=== PATIENT | female | born 1955 | race Caucasian/White ===

== ENCOUNTER 2020-03-04 13:56 | Outpatient (REF) | payer MEDICARE, OTHER, SELFPAY ==
--- NOTE | 2020-03-04 | MM_ITS ---
EXAMINATION: MM SCREENING DIGITAL BREAST TOMOSYNTHESIS, BILATERAL CLINICAL INFORMATION: Screening. Asymptomatic. The lifetime risk of breast cancer based on the Tyrer-Cuzick Model is 8%. COMPARISON: Mammography: 05/28/2018, 10/05/2011 TECHNIQUE: Digital breast tomosynthesis is performed in both the craniocaudal and mediolateral oblique views along with computer-aided detection (CAD). Synthesized 2D images are generated from the tomosynthesis. FINDINGS: There are scattered areas of fibroglandular density (ACR BI-RADS breast composition Category b). There are no significant masses, abnormal calcifications, or other abnormalities. The axilla and skin contours are unremarkable. MM/MM tomosynthesis screening BI IMPRESSION: No mammographic evidence of malignancy. ASSESSMENT: BI-RADS 1: Negative RECOMMENDATION: Routine annual mammography screening. This patient's information was entered into a reminder system with a target due date for their next mammogram.
== END 2020-03-04 13:57 | disposition home or self-care (01) ==
LOC: HO.MAMMO 13:56
PROVIDERS: Visit Provider Physician Assistant
DX: Z12.31 Encounter for screening mammogram for malignant neoplasm of breast (principal)
CPT/HCPCS: 77063; 77067

== ENCOUNTER 2020-03-14 07:14 | Outpatient (REF) | payer MEDICARE, OTHER, SELFPAY ==
[2020-03-14 08:17] LABS: Estimated Average Glucose 105 mg/dL; Hemoglobin A1c % 5.3 %
[2020-03-14 08:24] LABS: Alanine Aminotransferase 22 U/L (0-31); Albumin Level 4.1 g/dL (3.5-5.0); Alkaline Phosphatase 48 U/L (39-117); Anion Gap 13 (12-20); Aspartate Amino Transferase 21 U/L (5-31); Bilirubin Total 0.3 mg/dL (0.0-1.0); Blood Urea Nitrogen 28 mg/dL (9-16); Calcium 8.4 mg/dL (8.4-10.2); Carbon Dioxide 28 mmol/L (22-29); Chloride 104 mmol/L (96-108); Cholesterol 204 mg/dL; Estimated Glomerular Filt Rate > 60; Glucose Fasting 97 mg/dL (60-99); HDL Cholesterol 52 mg/dL; LDL Cholesterol Calculated 140 mg/dl; Potassium 4.5 mmol/l (3.3-5.1); Sodium 140 mmol/L (135-145); Total Protein 6.3 g/dL (6.5-8.0); Triglycerides 63 mg/dL
[2020-03-14 08:47] LABS: Thyroid Stimulating Hormone 4.62 mIU/mL (0.32-4.0)
== END 2020-03-14 07:15 | disposition home or self-care (01) ==
LOC: HO.LAB 07:14
PROVIDERS: PCP Physician Assistant; Visit Provider Physician Assistant
DX: Z13.1 Encounter for screening for diabetes mellitus (principal); Z13.220 Encounter for screening for lipoid disorders; Z13.29 Encounter for screening for other suspected endocrine disorder
CPT/HCPCS: 80053; 80061; 83036; 84443

== ENCOUNTER 2020-09-15 09:31 | Outpatient (REF) | payer MEDICARE, OTHER, SELFPAY ==
[2020-09-15 10:24] LABS: MANUAL DIFF FLAG NO
[2020-09-15 10:29] LABS: Basophils Percent Auto 0.8 % (0-2); Eosinophils Absolute Auto 0.2 X10*3/uL (0.0-0.4); Eosinophils Percent Auto 3.1 % (0-4); Hematocrit 40.7 % (37-47); Hemoglobin 13.3 g/dl (12.0-16.0); Imm Gran Abs Auto 0.01 X10*3/uL (0.00-0.03); Imm Gran Pct Auto 0.2 % (0.0-0.4); Lymphocytes Absolute Auto 1.6 X10*3/uL (1.2-4.9); Lymphocytes Percent Auto 31.5 % (20-40); Mean Corpuscular HGB Conc 32.7 g/dl (31.0-35.0); Mean Corpuscular Hemoglobin 30.3 pg (27.0-33.0); Mean Corpuscular Volume 92.7 fL (80-98); Monocytes Absolute Auto 0.6 X10*3/uL (0.1-1.2); Monocytes Percent Auto 11.1 % (2-11); Neutrophils Absolute Auto 2.7 X10*3/uL (2.0-8.3); Neutrophils Percent Auto 53.3 % (45-73); Platelet Count 263 X10*3/uL (160-400); Red Blood Count 4.39 X10*6/uL (4.20-5.50); Red Cell Distribution Width 12.6 % (11.0-16.0); White Blood Count 5.1 X10*3/uL (4.8-10.8)
[2020-09-15 10:54] LABS: Alanine Aminotransferase 18 U/L (0-31); Albumin Level 4.1 g/dL (3.5-5.0); Alkaline Phosphatase 51 U/L (39-117); Anion Gap 12 (12-20); Aspartate Amino Transferase 22 U/L (5-31); Bilirubin Total 0.8 mg/dL (0.0-1.0); Blood Urea Nitrogen 17 mg/dL (9-16); Calcium 9.3 mg/dL (8.4-10.2); Carbon Dioxide 28 mmol/L (22-29); Chloride 105 mmol/L (96-108); Cholesterol 191 mg/dL; Estimated Glomerular Filt Rate > 60; Glucose Fasting 97 mg/dL (60-99); HDL Cholesterol 43 mg/dL; LDL Cholesterol Calculated 131 mg/dl; Potassium 4.3 mmol/L (3.3-5.1); Sodium 141 mmol/L (135-145); Total Protein 6.3 g/dL (6.5-8.0); Triglycerides 89 mg/dL
[2020-09-15 11:15] LABS: TSH reflex Free T4 1.65 uIU/mL (0.32-4.0)
[2020-09-15 11:50] LABS: Creatinine Urine 117.12 mg/dL; Microalbum/Creatinine Ratio Ur 4.2 ug/mg cr
== END 2020-09-15 09:32 | disposition home or self-care (01) ==
LOC: HO.LAB 09:31
PROVIDERS: PCP Physician Assistant; Visit Provider Physician Assistant
DX: I10 Essential (primary) hypertension (principal); Z80.8 Family history of malignant neoplasm of other organs or systems
CPT/HCPCS: 36415; 80053; 80061; 82043; 84443; 85025

== ENCOUNTER 2020-12-25 15:12 | Outpatient (REF) | payer MEDICARE, OTHER, SELFPAY ==
[2020-12-25 16:42] LABS: Hematocrit 41.3 % (37-47); Hemoglobin 13.8 g/dl (12.0-16.0); Mean Corpuscular HGB Conc 33.4 g/dl (31.0-35.0); Mean Corpuscular Hemoglobin 30.7 pg (27.0-33.0); Mean Platelet Volume 10.4 fL (9.4-12.3); Platelet Count 280 X10*3/uL (160-400); Red Blood Count 4.49 X10*6/uL (4.20-5.50); Red Cell Distribution Width 12.7 % (11.0-16.0); White Blood Count 5.3 X10*3/uL (4.8-10.8)
[2020-12-25 17:10] LABS: Anion Gap 10 (12-20); Blood Urea Nitrogen 10 mg/dL (9-16); Calcium 9.6 mg/dL (8.4-10.2); Carbon Dioxide 31 mmol/L (22-29); Chloride 103 mmol/L (96-108); Estimated Glomerular Filt Rate > 60; Glucose Random 99 mg/dL (60-115); Potassium 4.4 mmol/L (3.3-5.1); Sodium 140 mmol/L (135-145)
[2020-12-25 17:37] LABS: TSH reflex Free T4 3.68 uIU/mL (0.32-4.0)
== END 2020-12-25 15:13 | disposition home or self-care (01) ==
LOC: HO.LAB 15:12
PROVIDERS: PCP Physician Assistant; Visit Provider Physician Assistant
DX: I10 Essential (primary) hypertension (principal)
CPT/HCPCS: 36415; 80048; 84443; 85027

== ENCOUNTER 2021-05-12 12:21 | Outpatient (REF) | payer MEDICARE, SELFPAY ==
--- NOTE | ~2021-05-12 | MM_ITS ---
EXAMINATION: MM SCREENING DIGITAL BREAST TOMOSYNTHESIS, BILATERAL CLINICAL INFORMATION: Screening. Asymptomatic. The lifetime risk of breast cancer based on the Tyrer-Cuzick Model is 7%. COMPARISON: Mammography: 03/04/2020, 05/12/2018, 10/05/2011 TECHNIQUE: Digital breast tomosynthesis is performed in both the craniocaudal and mediolateral oblique views along with computer-aided detection (CAD). Synthesized 2D images are generated from the tomosynthesis. FINDINGS: There are scattered areas of fibroglandular density (ACR BI-RADS breast composition Category b). There are no significant masses, abnormal calcifications, or other abnormalities. Parenchymal pattern is similar to prior studies. There is no developing density or architectural abnormality. The axilla and skin contours are unremarkable. No significant changes. MM/MM tomosynthesis screening BI IMPRESSION: No mammographic evidence of malignancy. ASSESSMENT: BI-RADS 1: Negative RECOMMENDATION: Routine annual mammography screening. This patient's information was entered into a reminder system with a target due date for their next mammogram.
--- NOTE | ~2021-05-12 | MM_ITS ---
EXAMINATION: BONE DENSITOMETRY CLINICAL INDICATION: Asymptomatic menopausal state. COMPARISON: None (current study represents initial baseline exam). TECHNIQUE: Using a [employer] DXA System (software version: 13.1) manufactured by [employer], dual-energy x-ray absorptiometry was performed of the lumbar spine and left hip. The images are of good technical quality. Summary results are attached. FINDINGS: AP SPINE L1-L3 (excluding L4): The data of L1-L4 has been changed to exclude the L4 vertebral body, because degenerative changes at this level may cause overestimation of lumbar spine density. BMD 1.117 g/cm2, Z-score 0.5, T-score -0.4, normal. LEFT FEMUR, NECK: BMD 0.779 g/cm2, Z-score -0.7, T-score -1.9, osteopenia. LEFT FEMUR, TOTAL: BMD 0.911 g/cm2, Z-score 0.1, T-score -0.8, normal. IDENTIFIED RISK FACTORS: Height loss, low calcium intake. Early menopause, secondary osteoporosis. HISTORY OF FRACTURE: None listed. MEDICATIONS: Vitamin D. MM/XR DEXA axial skeleton IMPRESSION: 1. DIAGNOSIS: Osteopenia based on the lowest T-score value of -1.9 in the femoral neck applying World Health Organization criteria. 2. 10-YEAR FRACTURE RISK PREDICTION, FRAX: Major osteoporotic fracture (clinical spine, forearm, hip or shoulder) 10.4%. Hip fracture 1.6%. 3. Treatment Recommendations: NOF guidelines recommend consideration for treatment in postmenopausal women and men age 50 and older presenting with the following: -A hip or vertebral (clinical or morphometric) fracture. -T-score less than or equal to -2.5 at the femoral neck or spine after appropriate evaluation to exclude secondary causes. -Low bone mass at the hip or spine and a 10-year fracture probability by FRAX of greater than or equal to 3% for hip fracture or greater than or equal to 20% for major osteoporotic fracture based on the [place] adapted WHO algorithm. 4. Other Recommendations: All treatment decisions require clinical judgment and consideration of individual patient factors, including patient preferences, comorbidities, previous drug use, risk factors not captured in the FRAX model (e.g. frailty, falls, vitamin D deficiency, increased bone turnover, interval significant decline in bone density) and possible under or overestimation of fracture risk by FRAX. Additional medical evaluation for secondary cause of low bone mineral density may be appropriate. FUTURE SCAN RECOMMENDATION: People with diagnosed cases of osteoporosis or at high risk for fracture should have regular bone mineral density tests. For patients eligible for Medicare, routine testing is allowed once every 2 years. The testing frequency can be increased to one year for patients who have rapidly progressing disease, those who are receiving or discontinuing medical therapy to restore bone mass, or have additional risk factors.
== END 2021-05-12 12:22 | disposition home or self-care (01) ==
LOC: HO.MAMMO 12:21
PROVIDERS: PCP Physician Assistant; Visit Provider Nurse Practitioner Family
DX: Z12.31 Encounter for screening mammogram for malignant neoplasm of breast (principal); Z13.820 Encounter for screening for osteoporosis; Z78.0 Asymptomatic menopausal state; M85.80 Other specified disorders of bone density and structure, unspecified site; Z79.899 Other long term (current) drug therapy
CPT/HCPCS: 77063; 77067; 77080

== ENCOUNTER 2021-11-03 06:59 | Outpatient (REF) | payer MEDICARE, SELFPAY ==
[2021-11-03 08:35] LABS: Alanine Aminotransferase 17 U/L (0-31); Alkaline Phosphatase 52 U/L (39-117); Anion Gap 12 (12-20); Aspartate Amino Transferase 24 U/L (5-31); Bilirubin Total 0.5 mg/dL (0.0-1.0); Blood Urea Nitrogen 16 mg/dL (9-16); Calcium 8.8 mg/dL (8.4-10.2); Carbon Dioxide 28 mmol/L (22-29); Chloride 103 mmol/L (96-108); Estimated Glomerular Filt Rate > 60; Glucose Fasting 102 mg/dL (60-99); Potassium 4.3 mmol/L (3.3-5.1); Sodium 139 mmol/L (135-145); Total Protein 6.4 g/dL (6.5-8.0)
== END 2021-11-03 07:00 | disposition home or self-care (01) ==
LOC: HO.LAB 06:59
PROVIDERS: PCP Physician Assistant; Visit Provider Nurse Practitioner Family
DX: Z13.1 Encounter for screening for diabetes mellitus (principal)
CPT/HCPCS: 36415; 80053

== ENCOUNTER 2021-11-04 07:48 | Outpatient (REF) | payer MEDICARE, SELFPAY ==
[2021-11-04 08:56] LABS: Estimated Average Glucose 111 mg/dL; Hemoglobin A1c % 5.5 %
== END 2021-11-04 07:49 | disposition home or self-care (01) ==
LOC: HO.LAB 07:48
PROVIDERS: Absent Provider Physician Assistant; PCP Physician Assistant; Visit Provider Nurse Practitioner Family
DX: R73.01 Impaired fasting glucose (principal)
CPT/HCPCS: 36415; 83036

== ENCOUNTER 2021-11-18 08:34 | Outpatient (REF) | payer MEDICARE, SELFPAY ==
[2021-11-18 09:40] LABS: Hematocrit 40.2 % (37.0-47.0); Hemoglobin 13.5 g/dl (12.0-16.0); Mean Corpuscular HGB Conc 33.6 g/dl (31.0-35.0); Mean Corpuscular Hemoglobin 30.4 pg (27.0-33.0); Mean Corpuscular Volume 90.5 fL (80.0-98.0); Mean Platelet Volume 10.3 fL (9.4-12.3); Platelet Count 288 X10*3/uL (160-400); Red Blood Count 4.44 X10*6/uL (4.20-5.50); Red Cell Distribution Width 12.7 % (11.0-16.0); White Blood Count 6.1 X10*3/uL (4.8-10.8)
[2021-11-18 10:07] LABS: Calcium 9.4 mg/dL (8.4-10.2)
[2021-11-18 10:35] LABS: TSH reflex Free T4 2.93 uIU/mL (0.32-4.0)
== END 2021-11-18 08:35 | disposition home or self-care (01) ==
LOC: HO.LAB 08:34
PROVIDERS: PCP Physician Assistant; Visit Provider Physician Assistant
DX: R53.83 Other fatigue (principal); Z80.7 Family history of other malignant neoplasms of lymphoid, hematopoietic and related tissues
CPT/HCPCS: 36415; 82310; 84443; 85027

== ENCOUNTER 2022-05-14 10:52 | Outpatient (REF) | payer MEDICARE, SELFPAY ==
--- NOTE | ~2022-05-14 | MM_ITS ---
EXAMINATION: MM SCREENING DIGITAL BREAST TOMOSYNTHESIS, BILATERAL CLINICAL INFORMATION: Screening. Asymptomatic. The lifetime risk of breast cancer based on the Tyrer-Cuzick Model is 7%. COMPARISON: Mammography: 05/12/2021, 03/04/2020, 05/12/2018 TECHNIQUE: Digital breast tomosynthesis is performed in both the craniocaudal and mediolateral oblique views along with computer-aided detection (CAD). Synthesized 2D images are generated from the tomosynthesis. FINDINGS: There are scattered areas of fibroglandular density (ACR BI-RADS breast composition Category b). There are no significant masses, abnormal calcifications, or other abnormalities. Parenchymal pattern is similar to prior studies. No developing density. The axilla and skin contours are unremarkable. No significant changes from prior exams. MM/MM tomosynthesis screening BI IMPRESSION: No mammographic evidence of malignancy. ASSESSMENT: BI-RADS 1: Negative RECOMMENDATION: Routine annual mammography screening. This patient's information was entered into a reminder system with a target due date for their next mammogram.
== END 2022-05-14 10:53 | disposition home or self-care (01) ==
LOC: HO.MAMMO 10:52
PROVIDERS: Visit Provider Physician Assistant
DX: Z12.31 Encounter for screening mammogram for malignant neoplasm of breast (principal)
CPT/HCPCS: 77063; 77067

== ENCOUNTER 2022-11-16 07:05 | Outpatient (REF) | payer MEDICARE, SELFPAY ==
[2022-11-16 08:25] LABS: Hematocrit 42.7 % (37.0-47.0); Hemoglobin 14.1 g/dl (12.0-16.0); Mean Corpuscular Hemoglobin 30.2 pg (27.0-33.0); Mean Corpuscular Volume 91.4 fL (80.0-98.0); Mean Platelet Volume 10.5 fL (9.4-12.3); Platelet Count 277 X10*3/uL (160-400); Red Blood Count 4.67 X10*6/uL (4.20-5.50); Red Cell Distribution Width 12.9 % (11.0-16.0); White Blood Count 5.7 X10*3/uL (4.8-10.8)
[2022-11-16 08:34] LABS: Estimated Average Glucose 97 mg/dL
[2022-11-16 09:08] LABS: Alanine Aminotransferase 21 U/L (0-31); Albumin Level 3.9 g/dL (3.5-5.0); Alkaline Phosphatase 49 U/L (39-117); Anion Gap 15 (12-20); Aspartate Amino Transferase 21 U/L (5-31); Bilirubin Total 0.6 mg/dL (0.0-1.0); Blood Urea Nitrogen 19 mg/dL (9-16); Calcium 9.3 mg/dL (8.4-10.2); Carbon Dioxide 24 mmol/L (22-29); Chloride 105 mmol/L (96-108); Estimated Glomerular Filt Rate > 60; Glucose Fasting 96 mg/dL (60-99); Potassium 4.1 mmol/L (3.3-5.1); Sodium 140 mmol/L (135-145); Total Protein 6.7 g/dL (6.5-8.0)
[2022-11-16 09:24] LABS: TSH reflex Free T4 4.05 uIU/mL (0.32-4.0)
[2022-11-16 09:54] LABS: Creatinine Urine 81.26 mg/dL; Microalbumin Urine < 5.0 mg/L
[2022-11-16 10:05] LABS: Free T4 (Free Thyroxine) 0.88 ng/dL (0.71-1.85)
== END 2022-11-16 07:06 | disposition home or self-care (01) ==
LOC: HO.LAB 07:05
PROVIDERS: PCP Physician Assistant; Visit Provider Physician Assistant
DX: I10 Essential (primary) hypertension (principal); R73.01 Impaired fasting glucose; R79.89 Other specified abnormal findings of blood chemistry
CPT/HCPCS: 36415; 80053; 82043; 83036; 84439; 84443; 85027

== ENCOUNTER 2022-11-18 10:37 | Outpatient (AMB) | payer MEDICARE, SELFPAY ==
--- NOTE | 2022-11-18 10:40 | A.OFFPC_ITS ---
Vital Signs 11/18/22 10:42 Height 5 ft 4 in Weight 185 lb BMI 31.8 BP 130/80 Blood Pressure Location Lt brachial Position Sitting Pulse 70 Pulse Source Pulse Oximeter Pulse Oximetry (%) 98 Oxygen Delivery Method Room Air Intake Visit Reasons: Follow Up Intake Note: pt is here for f/u Snagger Required: No Accompanied by: Self / Same As Patient Allergies oxycodone [OXYCODONE] Allergy (Severe, Verified 11/18/22 11:09) VOMITING acetaminophen [Percocet] Allergy (Unknown, Verified 11/18/22 11:09) Unknown Atenolol Allergy (Unknown, Uncoded 12/04/21 13:45) leg pain BB emiliano Allergy (Unknown, Uncoded 12/04/21 13:45) LEg cramps CCB Allergy (Unknown, Uncoded 12/04/21 13:45) memory issues Medication List - Last Reconciled 11/18/22 by Brian Delong PA-C ascorbic acid (vitamin C) 1 g PO DAILY blood pressure test kit-large As directed cholecalciferol (vitamin D3) 25 mcg PO DAILY flaxseed oil 1,000 mg PO DAILY hydrochlorothiazide 12.5 mg PO DAILY nystatin 1 appl topical DAILY 15 days timolol maleate 0.5% 1 drp ophthalmic (eye) QAM valacyclovir (Valtrex) 1,000 mg PO Q8H 7 days Tobacco use date assessed: 11/18/22 Fall risk assessment: No Falls in past year Last assessed Fall Risk: 11/18/22 Dental Screening Dental Screen Date: 11/18/22 Did you have a dental visit in the last 12 months?: Yes Did you have a dental problem in the last 6 months where you did not have access to dental care?: No Was dental information given to patient?: Patient has dentist HPI Follow Up HPI Details Iwona is a 67 yo female here today for a routine annual physical. ? Past medical history of HTN,? glaucoma, cataract, surgical repair of left and right retinal tears, and left eye lens repair; conductive hearing loss in Right ear. 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 concerns--> having stress incontinence over the last several weeks and wonders if this treatment but this. Also reports having some left lower extremity paresthesias worse when she is lying down flat. Does have a history degenerative disc in lumbar spine. ? .. ? Hypertension:? Blood pressure acceptable today in office.? She reports that blood pressures have been stable 120s to 130s.? Denies any itis X, chest discomforts or shortness of breath. Vaccines: Up-to-date with COVID vaccine, pneumonia vaccine, tetanus vaccine, N eed Shingrex vaccine Colon cancer screening: UTD with Colonoscopy - 2017 - repeat 10 years Mammogram: Done May 2022 BI-RADS 1 [facility] Medical History (Updated 11/20/22 @ 14:07 by Brian Delong PA-C) Family history of multiple myeloma Pigmented skin lesion of uncertain behavior of torso Post-menopausal Surgical History History of colonoscopy History of retinal tear History of retinal tear History of right cataract extraction History of tonsillectomy Family History Father No problems noted. 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 Jay Moctezuma, Marlena Zambrano, Tony Chan and colleagues, with an educational santi from [employer]. Review of Systems Const Denies body aches, Denies chills, Denies excessive sweating, Denies fatigue, Denies fever(s) and Denies headache(s) Eyes Denies blurry vision ENT Denies dysphagia, Denies vertigo, Denies dizziness, Denies headache(s), Denies hearing loss and Denies tinnitus Card Denies chest pain, Denies chest pain with activity, Denies syncope, Denies irregular heart rhythm and Denies dyspnea Resp Denies chest congestion, Denies cough, Denies hemoptysis, Denies dyspnea and Denies wheezing GI Denies abdominal pain, Denies melena, Denies hematochezia, Denies coffee ground emesis, Denies dysphagia, Denies diarrhea, Denies nausea and Denies vomiting Denies urinary frequency, Denies dysuria, Reports urinary incontinence, Denies urinary hesitancy and Denies urinary urgency Musc Denies arthralgias, Denies limited range of motion, Denies muscle cramps and Denies muscle weakness Skin/Breast Denies rash and Denies skin ulcer Neuro Denies Abnormal speech present, Denies confusion, Denies vertigo, Denies dizziness, Denies syncope, Denies headache(s), Denies memory loss and Denies seizure-like activity Psych Denies anxiety, Denies confusion, Denies depression, Denies memory loss, Denies panic attacks and Denies paranoia Endo Denies excessive sweating, Denies fatigue, Denies flushing, Denies polydipsia and Denies polyuria Aller/Immun Denies wheezing Physical exam (Primary Care) Vital Signs: Last Vital Signs Pulse 70 11/18/22 10:42 BP 130/80 11/18/22 10:42 Pulse Ox 98 11/18/22 10:42 Oxygen Delivery Method Room Air 11/18/22 10:42 BMI result Body Mass Index 31.8 BMI Assessment/Plan discussion: High Tobacco/Smoking Status: Tobacco use Status Tobacco use date assessed 11/18/22 11/18/22 10:41 Patient Tobacco Use Status Former Tobacco user 11/18/22 11:13 Tobacco use type Cigarette 11/18/22 11:13 e-Cigarette/Vaping Use Never Used 11/18/22 11:13 Thrive Assessment: Date of Thrive Assessment Date Thrive assessed 11/05/21 11/18/22 10:41 Const Other: Obese General: cooperative, comfortable, no acute distress, alert and awake; No confusion Orientation/consciousness: oriented to person, oriented to place, patient oriented x3 and No confusion HENMT Head: Yes normocephalic Ears: external ears normal and TM's normal bilaterally Face and sinus: No sinus tenderness Mouth: Normal oral and palatal mucosa present and tongue normal Teeth and gingiva: dentition normal and gingiva normal Throat: Yes posterior oropharynx normal, Yes tonsils normal and Yes uvula midline Eyes Conjunctivae: conjunctivae normal Sclerae: sclerae normal Pupils: Equal, round and reactive pupils present EOM: EOMs intact bilaterally Direct Ophthalmoscopy: No no photophobia Neck Neck: Yes no lymphadenopathy, No tender and Yes no JVD Thyroid: Thyroid normal Carotids: no bruits Chest Chest palpation & inspection: no tenderness Resp Effort & Inspection: normal respiratory effort, no audible wheezes, not labored and no stridor Auscultation: no crackles, no rales, no rhonchi and no wheezes Cardio Jugular venous distension: no JVD Rate: regular rate, not bradycardic and not tachycardic Rhythm: regular rhythm Bruits: no carotid bruits Peripheral pulses: Peripheral pulses 2+ throughout GI Inspection: Yes normal to inspection, No abdominal wall ecchymosis and No visible herniation Palpation (GI): Soft to palpation, nontender, no guarding, not rigid and No hepatosplenomegaly present Auscultation: normoactive bowel sounds General: Yes no CVA tenderness Back/Spine/Pelvis Back: no CVA tenderness and No back tenderness Cervical Spine: cervical ROM normal Thoracic/Lumbar Spine: thoracic and lumbar spine normal to inspection, straight leg raise negative bilaterally, No thoraco-lumbar ROM limited and No lumbar spinal tenderness Skin Lesions: no lesions Rashes: no rashes Wounds: no wounds Neuro General: oriented to person, oriented to place, patient oriented x3, CN's II-XI intact bilaterally and No confusion Cranial nerves: Yes Equal, round and reactive pupils present and Yes Normal accommodation reflex present Cognition (Neuro): normal cognition Speech: No Abnormal speech present Gait exam (Neuro): Normal gait present Motor exam (neuro): 5/5 motor strength present throughout Extrem Right upper extremity: full ROM; no cyanosis Left upper extremity: full ROM; no cyanosis Right lower extremity: no edema Left lower extremity: no edema Psych Appearance: grossly normal Mental Status: mental status grossly normal Affect: normal affect Attitude: cooperative Thought process: Normal thought process present Assessment and Plan Assessment & Plan (1) Annual physical exam: Code(s): Z00.00 - Encounter for general adult medical examination without abnormal findings (2) HTN (hypertension): Code(s): I10 - Essential (primary) hypertension Qualifiers: Hypertension type: essential hypertension Qualified Code(s): I10 - Essential (primary) hypertension Plan: Blood pressure today in office acceptable, will continue her current dose of antihypertensive medication goal blood pressure to be below 140/90 (3) Elevated TSH: Code(s): R79.89 - Other specified abnormal findings of blood chemistry Plan: Patient's most recent TSH slightly elevated. Will continue to follow and if continues to be elevated will consider low-dose levothyroxine. (4) Stress incontinence: Code(s): N39.3 - Stress incontinence (female) (male) Plan: Patient does report while lying down flat she does leak urine, she is willing to try pelvic floor therapy. (5) Obese: Code(s): E66.9 - Obesity, unspecified Qualifiers: Obesity type: due to excess calories Obesity classification: adult class 1 (BMI 30 - 34.9) Serious obesity comorbidity presence: without serious comorbidity Body mass index: BMI 31.0-31.9 Qualified Code(s): E66.09 - Other obesity due to excess calories; Z68.31 - Body mass index [BMI] 31.0-31.9, adult Plan: Patient does understand her BMI is over 30 will work on being more physically active and adapt to better eating habits to reduce her weight (6) Glaucoma: Code(s): H40.9 - Unspecified glaucoma Qualifiers: Glaucoma type: unspecified Laterality: left Qualified Code(s): H40.9 - Unspecified glaucoma Plan: Continues to follow ophthalmology, continues on timolol drops with good effect. Orders: Orders Comprehensive [place]. Panel Fast 6 Months I10 - Essential (primary) hypertension Lipid Panel 6 Months I10 - Essential (primary) hypertension TSH reflex Free T4 6 Months R79.89 - Other specified abnormal findings of blood chemistry Complete Blood Count no Diff 6 Months I10 - Essential (primary) hypertension PT Evaluation and Treatment 11/18/22 N39.3 - Stress incontinence (female) (male) Coding Level of Care Code Est Pt Prev Care >65y(55742) Diagnoses Annual physical exam Z00.00 HTN (hypertension) I10 Hypertension type: essential hypertension Elevated TSH R79.89 Stress incontinence N39.3 Obese E66.09; Z68.31 Obesity type: due to excess calories Obesity classification: adult class 1 (BMI 30 - 34.9) Serious obesity comorbidity presence: without serious comorbidity Body mass index: BMI 31.0-31.9 Glaucoma H40.9 Glaucoma type: unspecified Laterality: left
[2022-11-18 10:42] VITALS: BP 130/80; PULSE 70; O2SAT 98; BMI 31.8
== END 2022-11-18 11:26 | disposition home or self-care (01) ==
PROVIDERS: Visit Provider Physician Assistant
DX: I10 Essential (primary) hypertension (principal); E66.09 Other obesity due to excess calories; Z68.31 Body mass index [BMI] 31.0-31.9, adult; R79.89 Other specified abnormal findings of blood chemistry; N39.3 Stress incontinence (female) (male); H40.9 Unspecified glaucoma
CPT/HCPCS: 99214

== ENCOUNTER 2023-05-20 10:55 | Outpatient (REF) | payer MEDICARE, SELFPAY | END 2023-05-20 10:56 | disposition home or self-care (01) | LOC: HO.MAMMO 10:55 | PROVIDERS: PCP Physician Assistant; Visit Provider Physician Assistant | DX: Z12.31 Encounter for screening mammogram for malignant neoplasm of breast (principal) | CPT/HCPCS: 77063; 77067 ==

== ENCOUNTER → 2023-05-20 11:00 | Outpatient (BNV) | payer MEDICARE, SELFPAY | PROVIDERS: PCP Physician Assistant; Visit Provider Radiology Diagnostic Radiology | DX: Z12.31 Encounter for screening mammogram for malignant neoplasm of breast (principal) | CPT/HCPCS: 77063; 77067 ==

== ENCOUNTER 2023-05-23 08:22 | Outpatient (AMB) | payer MEDICARE, SELFPAY ==
[2023-05-23 08:35] VITALS: BP 136/78; PULSE 57; O2SAT 98; BMI 26.8
--- NOTE | 2023-05-23 08:35 | MHC.PC.OV ---
Vital Signs 05/23/23 08:35 Height 5 ft 4 in Weight 156 lb BMI 26.8 BP 136/78 Blood Pressure Location Lt brachial Position Sitting Pulse 57 Pulse Source Pulse Oximeter Pulse Oximetry (%) 98 Oxygen Delivery Method Room Air Intake Visit Reasons: 6mth f/u Allergies oxycodone [OXYCODONE] Allergy (Severe, Verified 05/23/23 08:41) VOMITING acetaminophen [Percocet] Allergy (Unknown, Verified 05/23/23 08:41) Unknown Atenolol Allergy (Unknown, Uncoded 05/23/23 08:37) leg pain BB emiliano Allergy (Unknown, Uncoded 05/23/23 08:37) LEg cramps CCB Allergy (Unknown, Uncoded 05/23/23 08:37) memory issues Medication List - Last Reconciled 05/23/23 by DANIELLE Márquez-C ascorbic acid (vitamin C) 1 g PO DAILY blood pressure test kit-large As directed cholecalciferol (vitamin D3) 25 mcg PO DAILY flaxseed oil 1,000 mg PO DAILY hydrochlorothiazide 12.5 mg PO DAILY nystatin 1 appl topical DAILY 15 days timolol maleate 0.5% 1 drp ophthalmic (eye) QAM valacyclovir (Valtrex) 1,000 mg PO Q8H 7 days Tobacco use date assessed: 05/23/23 Fall risk assessment: No Falls in past year Last assessed Fall Risk: 05/23/23 Dental Screening Dental Screen Date: 05/23/23 Did you have a dental visit in the last 12 months?: Yes Did you have a dental problem in the last 6 months where you did not have access to dental care?: No Was dental information given to patient?: Patient has dentist HPI 6mth f/u HPI Details Iwona is a 67 yo female here today for a follow up visit ? Past medical history of HTN,? 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 Urinary incontinence: Only. When she lies down flat. She has started in pelvic floor therapy ? .. ? Hypertension:? Blood pressure acceptable today in office.? She reports that blood pressures have been stable 120s to 130s.? Denies any , chest discomforts or shortness of breath. [facility] Medical History Pigmented skin lesion of uncertain behavior of torso Post-menopausal Family history of multiple myeloma Surgical History History of colonoscopy History of right cataract extraction History of retinal tear History of retinal tear History of tonsillectomy Family History Father No problems noted. 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 How often do you have a drink containing alcohol?: Never 3. How often do you have six or more drinks on one occasion?: Never Total Score: 0 DAMION-7 AMB Questionnaire DAMION-7 Date DAMION - 7 assessed: 05/23/23 Feeling nervous, anxious, or on edge: 0 = Not at all Not being able to stop or control worryin = Not at all Worrying too much about different things: 0 = Not at all Trouble relaxin = Not at all Being so restless that it is hard to sit still: 0 = Not at all Becoming easily annoyed or irritable: 0 = Not at all Feeling afraid as if something awful might happen: 0 = Not at all Total DAMION-7 score (0-4 normal; 5-9 mild; 10-14 moderate; 15-21 severe): 0 Source: Developed by Drs. Jay Moctezuma, Marlena Zambrano, Tony Chan and colleagues, with an educational santi from [employer]. DAMION-7 Assessment Billing DAMION-7 Assessment Tool: DAMION-7 Assessment 16053 Review of Systems Const Denies headache(s) Eyes Denies loss of vision ENT Denies vertigo, Denies dizziness, Denies headache(s) and Denies sore throat Card Denies chest pain, Denies leg edema and Denies lightheadedness Resp Denies cough, Denies hemoptysis and Denies wheezing GI Denies abdominal pain, Denies melena, Denies constipation, Denies diarrhea and Denies vomiting Denies urinary frequency, Denies dysuria and Denies urinary urgency Musc Denies arthralgias, Denies joint swelling, Denies numbness and Denies tingling Neuro Denies Abnormal speech present, Denies behavioral changes, Denies vertigo, Denies dizziness, Denies headache(s), Denies loss of vision, Denies memory loss, Denies numbness and Denies tingling Psych Denies anxiety, Denies behavioral changes, Denies depression, Denies memory loss and Denies panic attacks Scot/Lymph Denies easy bleeding and Denies easy bruising Aller/Immun Denies wheezing Physical exam (Primary Care) Vital Signs: Last Vital Signs Pulse 57 05/23/23 08:35 BP 136/78 05/23/23 08:35 Pulse Ox 98 05/23/23 08:35 Oxygen Delivery Method Room Air 05/23/23 08:35 BMI result Body Mass Index 26.8 Tobacco/Smoking Status: Tobacco use Status Tobacco use date assessed 05/23/23 05/23/23 08:39 Patient Tobacco Use Status Former Tobacco user 05/23/23 08:39 Tobacco use type Cigarette 05/23/23 08:39 e-Cigarette/Vaping Use Never Used 05/23/23 08:39 Thrive Assessment: Date of Thrive Assessment Date Thrive assessed 11/05/21 05/23/23 08:39 Const General: healthy appearing, no acute distress, alert and awake Nutritional Appearance: well nourished Orientation/consciousness: oriented to person, oriented to place and oriented to time HENMT Ears: TM's normal bilaterally General nose exam: Normal nasal mucous membranes and turbinates present Eyes Conjunctivae: conjunctivae normal Sclerae: sclerae normal Pupils: Equal, round and reactive pupils present Neck Neck: Yes no lymphadenopathy and Yes no JVD Thyroid: Thyroid normal Carotids: no bruits Resp Effort & Inspection: normal respiratory effort and not tachypneic Auscultation: no crackles, no rales, no rhonchi and no wheezes Cardio Rate: regular rate Rhythm: regular rhythm Heart sounds: no murmurs and normal S1 and S2 GI Palpation (GI): Soft to palpation, nontender, no hepatomegaly and no splenomegaly Auscultation: normal bowel sounds Skin General skin exam: no rashes or lesions noted and dry skin Neuro General: oriented to person, oriented to place and oriented to time Cranial nerves: Yes Equal, round and reactive pupils present Speech: No Abnormal speech present Gait exam (Neuro): Normal gait present Motor exam (neuro): no tremor noted Extrem Right upper extremity: full ROM Left upper extremity: full ROM Right lower extremity: full ROM; no edema Left lower extremity: full ROM; no edema Psych Mental Status: mental status grossly normal Speech and movement: Normal speech and movement present Affect: normal affect Attitude: cooperative Thought process: Normal thought process present Assessment and Plan Assessment & Plan (1) HTN (hypertension): Code(s): I10 - Essential (primary) hypertension Qualifiers: Hypertension type: essential hypertension Qualified Code(s): I10 - Essential (primary) hypertension Plan: Blood pressure today in office acceptable, will continue her current dose of antihypertensive medication goal blood pressure to be below 140/90 (2) Elevated TSH: Code(s): R79.89 - Other specified abnormal findings of blood chemistry Plan: Patient's most recent TSH slightly elevated. Will continue to follow and if continues to be elevated will consider low-dose levothyroxine. (3) Stress incontinence: Code(s): N39.3 - Stress incontinence (female) (male) Plan: Has started in common floor therapy (4) Glaucoma: Code(s): H40.9 - Unspecified glaucoma Qualifiers: Glaucoma type: unspecified Laterality: left Qualified Code(s): H40.9 - Unspecified glaucoma Plan: Continues to follow ophthalmology, continues on timolol drops with good effect. Orders: Orders TSH reflex Free T4 Today R79.89 - Other specified abnormal findings of blood chemistry Comprehensive [place]. Panel Fast Today R79.89 - Other specified abnormal findings of blood chemistry Microalbumin, Random (w Creat) Today I10 - Essential (primary) hypertension Coding Level of Care Code Est Pt Level 4 (72988) Diagnoses Essential hypertension I10 Hypertension type: essential hypertension Elevated TSH R79.89 Stress incontinence N39.3 Glaucoma of left eye, unspecified glaucoma type H40.9 Glaucoma type: unspecified Laterality: left Additional Codes DAMION-7 Assessment Billing - DAMION-7 Assessment Tool: DAMION-7 Assessment [id number] ([id number])
== END 2023-05-23 08:56 | disposition home or self-care (01) ==
PROVIDERS: PCP Physician Assistant; Visit Provider Physician Assistant
DX: I10 Essential (primary) hypertension (principal); R79.89 Other specified abnormal findings of blood chemistry; N39.3 Stress incontinence (female) (male); H40.9 Unspecified glaucoma
CPT/HCPCS: 99214

== ENCOUNTER 2023-06-15 15:00 | Outpatient (RCR) | payer MEDICARE, SELFPAY ==
--- NOTE | 2023-05-17 10:46 | MHC.PT.EP ---
[facility] [place] Office [place] Office [place] Office [address] Patrice Hardy [address] [phone] F: [phone] F: [phone] F: [phone] F: [phone] Physical Therapy Plan of Care Date of Evaluation: 05/17/23 Date of Surgery: NA Diagnosis: Stress incontinence Assessment: Iwona is a 67 year old female who is referred to PT for stress incontinence . She reports of having urinary incontinence every time she lies down on her back and side. She has had these symptoms for about 2 years. In addition she also reports of having UI with running and jumping since she was a teenager. She denies urinary urgency and frequency. She has had intermittent episodes of FI with the last episode being 3 weeks back. She denies having constipation and is not sexually active. She denies having any pain. On PT examination she presented with pain to palpation over PFM B, and decreased strength and endurance of PFM. In addition she also presented with weakness in L LE. She lives alone and is independent with all ADLS. 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 She would benefit from skilled PT to address the aforementioned impairments and improve tolerance to functional activities. Frequency and Duration: The patient will be seen 1/week for 8 weeks Short Term Goals: 1. Pt report of having 50% decrease in incontinence with lying down in 2 weeks. 2. Pt will present with no pain to palpation of PFM which will help improve tolerance to SL on L side in 3 weeks [employer] Goals: 1. Pt will present with an increase in muscle strength by 1 grade which will help her have no episodes of UI or FI in 5 weeks. 2. Pt will not need to wear any form of protective garments for UI in 6 weeks 3. Pt will be independent with all HEP for symptom management and maintenance following d/c in 8 weeks. Treatment Plan: Modalities to reduce pain, spasms and effusion. Manual therapy to restore motion and function. Therapeutic exercise to improve strength and flexibility. Neuromuscular re-education for posture and balance. Therapeutic activities to return to functional activities of daily living. Electronically signed by: Please sign and return to therapist. Thank you for your referral.
--- NOTE | 2023-06-29 09:17 | MHC.PT.DC ---
[facility] [place] Office [place] Office [place] Office [address] Patrice Hardy 140 [facility] [phone] F: [phone] F: [phone] F: [phone] F: [phone] Physical Therapy Discharge Report Diagnosis: Stress incontinence Date of Surgery: NA Date of Evaluation: 05/17/23 Date of Discharge: 06/29/23 Treatments to Date: 5 Cancellations to Date: 0 No Shows to Date: 0 Discharge Status: Patient Elected to Stop Discharge Summary: Iwona attended 5 PT visits. She did not make any significant improvements in these 5 visits. She canceled her last 2 visits and self d/c herself. She is therefore being d/c from PT. Electronically signed by: Ursula Benoit, PT DPT Please sign and return to therapist. Thank you for your referral.
== END 2023-06-29 09:17 | disposition home or self-care (01) ==
LOC: HO.PT 15:00
PROVIDERS: PCP Physician Assistant; Visit Provider Physician Assistant
DX: N39.3 Stress incontinence (female) (male) (principal)
CPT/HCPCS: 97110; 97112; 97140; 97161

== ENCOUNTER 2023-11-14 15:26 | Outpatient (REF) | payer MEDICARE, SELFPAY ==
[2023-11-14 17:12] LABS: Hematocrit 39.6 % (37.0-47.0); Hemoglobin 13.5 g/dl (12.0-16.0); Mean Corpuscular HGB Conc 34.1 g/dl (31.0-35.0); Mean Corpuscular Hemoglobin 31.3 pg (27.0-33.0); Mean Corpuscular Volume 91.9 fL (80.0-98.0); Mean Platelet Volume 10.8 fL (9.4-12.3); Platelet Count 253 X10*3/uL (160-400); Red Blood Count 4.31 X10*6/uL (4.20-5.50); Red Cell Distribution Width 12.7 % (11.0-16.0); White Blood Count 6.6 X10*3/uL (4.8-10.8)
[2023-11-14 18:01] LABS: Alanine Aminotransferase 16 U/L (0-31); Albumin Level 4.1 g/dL (3.5-5.0); Alkaline Phosphatase 52 U/L (39-117); Anion Gap 12 (12-20); Aspartate Amino Transferase 23 U/L (5-31); Bilirubin Total 0.6 mg/dL (0.0-1.0); Blood Urea Nitrogen 12 mg/dL (9-16); Calcium 9.1 mg/dL (8.4-10.2); Carbon Dioxide 28 mmol/L (22-29); Chloride 103 mmol/L (96-108); Cholesterol 179 mg/dL (<200); Estimated Glomerular Filt Rate > 60; Glucose Fasting 77 mg/dL (60-99); HDL Cholesterol 44 mg/dL (>40); LDL Cholesterol Calculated 118 mg/dL (<100); Potassium 3.4 mmol/L (3.3-5.1); Sodium 140 mmol/L (135-145); Total Protein 6.7 g/dL (6.5-8.0); Triglycerides 88 mg/dL (<150)
[2023-11-14 18:14] LABS: TSH reflex Free T4 2.77 uIU/mL (0.32-4.0)
[2023-11-14 18:33] LABS: Creatinine Urine 55.99 mg/dL; Microalbum/Creatinine Ratio Ur 10.7 ug/mg cr (<30)
== END 2023-11-14 15:27 | disposition home or self-care (01) ==
LOC: HO.LAB 15:26
PROVIDERS: PCP Physician Assistant; Visit Provider Physician Assistant
DX: R79.89 Other specified abnormal findings of blood chemistry (principal); I10 Essential (primary) hypertension
CPT/HCPCS: 36415; 80053; 80061; 82043; 82570; 84443; 85027

== ENCOUNTER 2023-11-21 09:22 | Outpatient (AMB) | payer MEDICARE, SELFPAY ==
--- NOTE | 2023-11-21 09:32 | MHC.PC.OV ---
Vital Signs 11/21/23 09:33 Height 5 ft 4 in Weight 185 lb 6 oz BMI 31.8 BP 150/82 H Blood Pressure Location Lt brachial Position Sitting Pulse 57 Pulse Source Pulse Oximeter Pulse Oximetry (%) 97 Oxygen Delivery Method Room Air Intake Visit Reasons: Annual Exam Intake Note: Patient is here today for a physical. Behavioral Health Consultant Required: No Accompanied by: Self / Same As Patient Allergies oxycodone [OXYCODONE] Allergy (Severe, Verified 11/21/23 09:39) VOMITING acetaminophen [Percocet] Allergy (Unknown, Verified 11/21/23 09:39) Unknown Atenolol Allergy (Unknown, Uncoded 11/21/23 09:39) leg pain BB emiliano Allergy (Unknown, Uncoded 11/21/23 09:39) LEg cramps CCB Allergy (Unknown, Uncoded 11/21/23 09:39) memory issues Medication List - Last Reconciled 11/21/23 by DANIELLE Márquez-Fabián ascorbic acid (vitamin C) 1 g PO DAILY blood pressure test kit-large As directed cholecalciferol (vitamin D3) 25 mcg PO DAILY flaxseed oil 1,000 mg PO DAILY hydrochlorothiazide 12.5 mg PO DAILY nystatin 1 appl topical DAILY 15 days timolol maleate 0.5% 1 drp ophthalmic (eye) QAM valacyclovir (Valtrex) 1,000 mg PO Q8H 7 days Tobacco use date assessed: 05/23/23 Fall risk assessment: No Falls in past year Last assessed Fall Risk: 11/21/23 Dental Screening Dental Screen Date: 05/23/23 HPI Annual Exam HPI Details Iwona is a 68 yo female here today for an annual physical ? Past medical history of HTN,? 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 Concern--> reports feeling somewhat dizzy and short of breath on exertion. She does not have any chest pain. 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 Urinary incontinence: Has done former pelvic floor therapy though felt it was not helpful. Her incontinence only happens when she lays down. She reports she will deal with this ? .. ? Hypertension:? Blood pressure slightly elevated today in office.? She reports that blood pressures have been stable 120s to 130s.? Denies any , chest discomforts or shortness of breath. Vaccines: Up-to-date with COVID vaccine, pneumonia vaccine, tetanus vaccine, Need Shingrex vaccine Colon cancer screening: UTD with Colonoscopy - 2017 - repeat 10 years Mammogram: Done May 2023 BI-RADS 1 Laboratory Tests 11/03/21 11/04/21 11/18/21 07:13 08:00 09:03 RBC Creatinine 0.78 Fasting Glucose 102 H Hemoglobin A1c % 5.5 Cholesterol LDL Cholesterol, C alc TSH 2.93 Urine Microalbumin 11/16/22 11/14/23 11/14/23 07:17 15:36 Unknown RBC 4.67 4.31 Creatinine 0.74 0.71 Fasting Glucose Hemoglobin A1c % Cholesterol 179 LDL Cholesterol, C alc 118 H TSH 4.05 H 2.77 Urine Microalbumin 6.0 PFSH Medical History Pigmented skin lesion of uncertain behavior of torso Post-menopausal Family history of multiple myeloma Surgical History History of colonoscopy History of right cataract extraction History of retinal tear History of retinal tear History of tonsillectomy Family History Father No problems noted. Mother Cancer Paternal Grandmother Cancer Other Substance use disorder Social History (Updated 11/21/23 @ 09:44 by Brian Delong PA-C) Housing: House Alcohol intake: never Patient Tobacco Use Status: Former Tobacco user Tobacco use type: Cigarette e-Cigarette/Vaping Use: Never Used service: No Current occupational status: employed Current occupation: [employer] Cognitive needs: No Hearing needs: No Vision needs: Yes Questionnaire PHQ-9 Over the last 2 weeks, how often have you been bothered by any of the following problems? 52599 - PHQ-9 Billing: Patient declined-do not bill Source: Developed by Drs. Jay Moctezuma, Marlena Zambrano, Tony Chan and colleagues, with an educational santi from [employer]. Thrive Questionnaire Date Thrive assessed: 11/21/23 I am a: Patient What is your living situation today?: I have a steady place to live Within the past 12 months, did the food you bought not last and you didn't have the money to get more?: Never true Within the past 12 months, did you worry whether your food would run out before you got money to buy more?: Never true Do you have trouble paying for medicines?: No Do you have trouble getting transportation to medical appointments?: No Do you have trouble paying your heating and electricity bill?: No Do you have trouble taking care of your child, family member or friend?: No Do you have trouble with day-to-day activities such as bathing, preparing meals, shopping, managing finances, etc.?: No Are you currently unemployed and looking for a job?: No Are you interested in more education?: No Please select the resources that you would like help with: None Currently or been in a relationship where the following occur: No concerns reported THRIVE Score: 0 AUDIT C Alcohol Use Questionnaire (AUDIT-C) 1. How often do you have a drink containing alcohol?: Never 3. How often do you have six or more drinks on one occasion?: Never Total Score: 0 DAMION-7 AMB Questionnaire DAMION-7 Date DAMION - 7 assessed: 11/21/23 Source: Developed by Drs. Jay Moctezuma, Marlena Zambrano, Tony Chan and colleagues, with an educational santi from [employer]. Review of Systems Const Denies body aches, Denies chills, Denies excessive sweating, Denies fatigue, Denies fever(s) and Denies headache(s) Eyes Denies blurry vision ENT Denies dysphagia, Denies vertigo, Denies dizziness, Denies headache(s), Denies hearing loss and Denies tinnitus Card Denies chest pain, Denies chest pain with activity, Denies syncope, Denies irregular heart rhythm and Denies dyspnea Resp Denies chest congestion, Denies cough, Denies hemoptysis, Denies dyspnea and Denies wheezing GI Denies abdominal pain, Denies melena, Denies hematochezia, Denies coffee ground emesis, Denies dysphagia, Denies diarrhea, Denies nausea and Denies vomiting Denies urinary frequency, Denies dysuria, Denies urinary hesitancy and Denies urinary urgency Musc Denies arthralgias, Denies limited range of motion, Denies muscle cramps and Denies muscle weakness Skin/Breast Denies rash and Denies skin ulcer Neuro Denies Abnormal speech present, Denies confusion, Denies vertigo, Denies dizziness, Denies syncope, Denies headache(s), Denies memory loss and Denies seizure-like activity Psych Denies anxiety, Denies confusion, Denies depression, Denies memory loss, Denies panic attacks and Denies paranoia Endo Denies excessive sweating, Denies fatigue, Denies flushing, Denies polydipsia and Denies polyuria Aller/Immun Denies wheezing Physical exam (Primary Care) Vital Signs: Last Vital Signs Pulse 57 11/21/23 09:33 BP 150/82 H 11/21/23 09:33 Pulse Ox 97 11/21/23 09:33 Oxygen Delivery Method Room Air 11/21/23 09:33 BMI result Body Mass Index 31.8 Tobacco/Smoking Status: Tobacco use Status Tobacco use date assessed 05/23/23 11/21/23 09:32 Patient Tobacco Use Status Former Tobacco user 11/21/23 09:32 Tobacco use type Cigarette 11/21/23 09:32 e-Cigarette/Vaping Use Never Used 11/21/23 09:32 Thrive Assessment: Date of Thrive Assessment Date Thrive assessed 11/21/23 11/21/23 09:37 Currently or been in a relationship where the following occur: No concerns reported Const General: cooperative, comfortable, no acute distress, alert and awake; No confusion Orientation/consciousness: oriented to person, oriented to place, patient oriented x3 and No confusion HENMT Head: Yes normocephalic Ears: external ears normal and TM's normal bilaterally Face and sinus: No sinus tenderness Mouth: Normal oral and palatal mucosa present and tongue normal Teeth and gingiva: dentition normal and gingiva normal Throat: Yes posterior oropharynx normal, Yes tonsils normal and Yes uvula midline Eyes Conjunctivae: conjunctivae normal Sclerae: sclerae normal Pupils: Equal, round and reactive pupils present EOM: EOMs intact bilaterally Direct Ophthalmoscopy: No no photophobia Neck Neck: Yes no lymphadenopathy, No tender and Yes no JVD Thyroid: Thyroid normal Carotids: no bruits Chest Chest palpation & inspection: no tenderness Resp Effort & Inspection: normal respiratory effort, no audible wheezes, not labored and no stridor Auscultation: no crackles, no rales, no rhonchi and no wheezes Cardio Jugular venous distension: no JVD Rate: regular rate, not bradycardic and not tachycardic Rhythm: regular rhythm Bruits: no carotid bruits Peripheral pulses: Peripheral pulses 2+ throughout GI Inspection: Yes normal to inspection, No abdominal wall ecchymosis and No visible herniation Palpation (GI): Soft to palpation, nontender, no guarding, not rigid and No hepatosplenomegaly present Auscultation: normoactive bowel sounds General: Yes no CVA tenderness Back/Spine/Pelvis Back: no CVA tenderness and No back tenderness Cervical Spine: cervical ROM normal Thoracic/Lumbar Spine: thoracic and lumbar spine normal to inspection, straight leg raise negative bilaterally, No thoraco-lumbar ROM limited and No lumbar spinal tenderness Skin Lesions: no lesions Rashes: no rashes Wounds: no wounds Neuro General: oriented to person, oriented to place, patient oriented x3, CN's II-XI intact bilaterally and No confusion Cranial nerves: Yes Equal, round and reactive pupils present and Yes Normal accommodation reflex present Cognition (Neuro): normal cognition Speech: No Abnormal speech present Gait exam (Neuro): Normal gait present Motor exam (neuro): 5/5 motor strength present throughout Extrem Right upper extremity: full ROM; no cyanosis Left upper extremity: full ROM; no cyanosis Right lower extremity: no edema Left lower extremity: no edema Psych Appearance: grossly normal Mental Status: mental status grossly normal Affect: normal affect Attitude: cooperative Thought process: Normal thought process present Assessment and Plan Assessment & Plan (1) Annual physical exam: Code(s): Z00.00 - Encounter for general adult medical examination without abnormal findings (2) HTN (hypertension): Code(s): I10 - Essential (primary) hypertension Qualifiers: Hypertension type: essential hypertension Qualified Code(s): I10 - Essential (primary) hypertension Plan: Blood pressure today in office slightly elevated, reports she recently was traveling on vacation in his a bit stress., will continue her current dose of antihypertensive medication goal blood pressure to be below 140/90 (3) Glaucoma: Code(s): H40.9 - Unspecified glaucoma Qualifiers: Glaucoma type: unspecified Laterality: left Qualified Code(s): H40.9 - Unspecified glaucoma Plan: Continues to follow ophthalmology, continues on timolol drops with good effect. (4) Bradycardia: Code(s): R00.1 - Bradycardia, unspecified Plan: Has slight bradycardia today in office. Likely related to her timolol eyedrops. She does report on physical exertion she does feel a bit panicky /short of breath. Will send for EKG to evaluate for any AV block. Will consider cardiac stress testing to evaluate for ischemia. Orders: Orders Microalbumin, Random (w Creat) 6 Months I10 - Essential (primary) hypertension Complete Blood Count no Diff 6 Months I10 - Essential (primary) hypertension Comprehensive [place]. Panel Fast 6 Months I10 - Essential (primary) hypertension TSH reflex Free T4 6 Months R79.89 - Other specified abnormal findings of blood chemistry Patient Instructions: Goal: Blood pressure to be below 140/90 Barriers: Adherence to physical activity and healthy eating habits Coding Level of Care Code Est Pt Prev Care >65y(99838) Diagnoses Annual physical exam Z00.00 Essential hypertension I10 Hypertension type: essential hypertension Glaucoma of left eye, unspecified glaucoma type H40.9 Glaucoma type: unspecified Laterality: left Bradycardia R00.1
[2023-11-21 09:33] VITALS: BP 150/82; PULSE 57; O2SAT 97; BMI 31.8
== END 2023-11-21 10:04 | disposition home or self-care (01) ==
PROVIDERS: PCP Physician Assistant; Visit Provider Physician Assistant
DX: Z00.00 Encounter for general adult medical examination without abnormal findings (principal); I10 Essential (primary) hypertension; H40.9 Unspecified glaucoma; R00.1 Bradycardia, unspecified
CPT/HCPCS: 99214; 99397

== ENCOUNTER 2024-07-24 06:59 | Outpatient (REF) | payer MEDICARE, SELFPAY ==
[2024-07-24 08:07] LABS: Hematocrit 41.1 % (37.0-47.0); Hemoglobin 13.7 g/dl (12.0-16.0); Mean Corpuscular HGB Conc 33.3 g/dl (31.0-35.0); Mean Corpuscular Hemoglobin 31.1 pg (27.0-33.0); Mean Corpuscular Volume 93.2 fL (80.0-98.0); Mean Platelet Volume 10.7 fL (9.4-12.3); Platelet Count 260 X10*3/uL (160-400); Red Blood Count 4.41 X10*6/uL (4.20-5.50); Red Cell Distribution Width 12.5 % (11.0-16.0); White Blood Count 5.6 X10*3/uL (4.8-10.8)
[2024-07-24 08:48] LABS: Creatinine Urine 123.17 mg/dL; Microalbumin Urine < 5.0 mg/L
[2024-07-24 08:49] LABS: Alanine Aminotransferase 21 U/L (0-31); Albumin Level 3.7 g/dL (3.5-5.0); Alkaline Phosphatase 56 U/L (39-117); Anion Gap 12 (12-20); Aspartate Amino Transferase 25 U/L (5-31); Bilirubin Total 0.4 mg/dL (0.0-1.0); Blood Urea Nitrogen 19 mg/dL (9-16); Calcium 8.7 mg/dL (8.4-10.2); Carbon Dioxide 26 mmol/L (22-29); Chloride 108 mmol/L (96-108); Estimated Glomerular Filt Rate > 60; Glucose Fasting 95 mg/dL (60-99); Potassium 3.9 mmol/L (3.3-5.1); Sodium 142 mmol/L (135-145); Total Protein 6.4 g/dL (6.5-8.0)
[2024-07-24 09:40] LABS: Free T4 (Free Thyroxine) 0.92 ng/dL (0.71-1.85)
== END 2024-07-24 07:00 | disposition home or self-care (01) ==
LOC: HO.LAB 06:59
PROVIDERS: PCP Physician Assistant; Visit Provider Physician Assistant
DX: I10 Essential (primary) hypertension (principal); R79.89 Other specified abnormal findings of blood chemistry
CPT/HCPCS: 36415; 80053; 82570; 84439; 84443; 85027

== ENCOUNTER 2024-07-25 08:54 | Outpatient (AMB) | payer MEDICARE, SELFPAY ==
[2024-07-25 09:10] VITALS: BP 140/86; PULSE 62; O2SAT 95; BMI 32.8
--- NOTE | 2024-07-25 09:10 | MHC.PC.OV ---
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 Accompanied by: Self / Same As Patient Allergies oxycodone [OXYCODONE] Allergy (Severe, Verified 07/25/24 09:34) VOMITING acetaminophen [Percocet] Allergy (Unknown, Verified 07/25/24 09:34) Unknown Atenolol Allergy (Unknown, Uncoded 07/25/24 09:34) leg pain BB emiliano Allergy (Unknown, Uncoded 07/25/24 09:34) LEg cramps CCB Allergy (Unknown, Uncoded 07/25/24 09:34) memory issues Medication List - Last Reconciled 07/25/24 by Brian Delong PA-C ascorbic acid (vitamin C) 1 g PO DAILY blood pressure test kit-large As directed cholecalciferol (vitamin D3) 25 mcg PO DAILY flaxseed oil 1,000 mg PO DAILY hydrochlorothiazide 12.5 mg PO DAILY nystatin 1 appl topical DAILY 15 days timolol maleate 0.5% 1 drp ophthalmic (eye) QAM valacyclovir (Valtrex) 1,000 mg PO Q8H 7 days Tobacco use date assessed: 07/25/24 Fall risk assessment: No Falls in past year Last assessed Fall Risk: 07/25/24 Dental Screening Dental Screen Date: 07/25/24 Did you have a dental visit in the last 12 months?: Yes Did you have a dental problem in the last 6 months where you did not have access to dental care?: No Was dental information given to patient?: Patient has dentist HPI 6 Month F/U HPI Details Iwona is a 69-year-old female here today for follow-up visit ? Past medical history of HTN,? 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 ? .. ? Hypertension:? Blood pressure slightly elevated today in office.? She reports she has been under lot of stress as of lately. She is consistent with the use of her hydrochlorothiazide She does not regularly check her blood pressures at home and promises to start doing so. Denies any , chest discomforts or shortness of breath. .. Elevated TSH: Have noted elevated TSH readings over past 5 years. She has gained weight since last office visit. She is willing to trial low-dose levothyroxine to help her with stabilizing her thyroid. Laboratory Tests 11/14/23 07/24/24 07/24/24 15:36 07:18 07:20 RBC 4.41 Creatinine 0.73 TSH 2.77 4.40 H Urine Microalbumin < 5.0 [facility] Medical History Pigmented skin lesion of uncertain behavior of torso Post-menopausal Family history of multiple myeloma Surgical History History of colonoscopy History of right cataract extraction History of retinal tear History of retinal tear History of tonsillectomy Family History Father No problems noted. 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 1. Little interest or pleasure in doing things: not at all 2. Feeling down, depressed, or hopeless: not at all 3. Trouble falling or staying asleep, or sleeping too much: not at all 4. Feeling tired or having little energy: not at all 5. Poor appetite or overeating: not at all 6. Feeling bad about yourself - or that you are a failure or have let yourself or your family down: not at all 7. Trouble concentrating on things, such as reading the newspaper or watching television: not at all 8. Moving or speaking so slowly that other people could have noticed. Or the opposite - being so fidgety or restless that you have been moving around a lot more than usual: not at all 9. Thoughts that you would be better off or of hurting yourself in some way: not at all Total score: 0 Depression Screening Interpretation: Negative Depression Screening Done: Yes 28562 - PHQ-9 Billing: Yes Source: Developed by Drs. Jay Moctezuma, Marlena Zambrano, Tony Chan and colleagues, with an educational santi from [employer]. Thrive Questionnaire Date Thrive assessed: 07/25/24 I am a: Patient What is your living situation today?: I have a steady place to live Within the past 12 months, did the food you bought not last and you didn't have the money to get more?: Never true Within the past 12 months, did you worry whether your food would run out before you got money to buy more?: Never true Do you have trouble paying for medicines?: No Do you have trouble getting transportation to medical appointments?: No Do you have trouble paying your heating and electricity bill?: No Do you have trouble taking care of your child, family member or friend?: No Do you have trouble with day-to-day activities such as bathing, preparing meals, shopping, managing finances, etc.?: No Are you currently unemployed and looking for a job?: No Are you interested in more education?: No Please select the resources that you would like help with: None Currently or been in a relationship where the following occur: No concerns reported THRIVE Score: 0 AUDIT C Alcohol Use Questionnaire (AUDIT-C) 1. How often do you have a drink containing alcohol?: Never 3. How often do you have six or more drinks on one occasion?: Never Total Score: 0 DAMION-7 AMB Questionnaire DAMION-7 Date DAMION - 7 assessed: 07/25/24 Feeling nervous, anxious, or on edge: 0 = Not at all Not being able to stop or control worryin = Not at all Worrying too much about different things: 0 = Not at all Trouble relaxin = Not at all Being so restless that it is hard to sit still: 0 = Not at all Becoming easily annoyed or irritable: 0 = Not at all Feeling afraid as if something awful might happen: 0 = Not at all Total DAMION-7 score (0-4 normal; 5-9 mild; 10-14 moderate; 15-21 severe): 0 Source: Developed by Drs. Jay Moctezuma, Marlena Zambrano, Tony Chan and colleagues, with an educational santi from [employer]. DAMION-7 Assessment Billing DAMION-7 Assessment Tool: DAMION-7 Assessment 25078 Review of Systems Const Denies headache(s) Eyes Denies loss of vision ENT Denies vertigo, Denies dizziness, Denies headache(s) and Denies sore throat Card Denies chest pain, Denies leg edema and Denies lightheadedness Resp Denies cough, Denies hemoptysis and Denies wheezing GI Denies abdominal pain, Denies melena, Denies constipation, Denies diarrhea and Denies vomiting Denies urinary frequency, Denies dysuria and Denies urinary urgency Musc Denies arthralgias, Denies joint swelling, Denies numbness and Denies tingling Neuro Denies Abnormal speech present, Denies behavioral changes, Denies vertigo, Denies dizziness, Denies headache(s), Denies loss of vision, Denies memory loss, Denies numbness and Denies tingling Psych Denies anxiety, Denies behavioral changes, Denies depression, Denies memory loss and Denies panic attacks Scot/Lymph Denies easy bleeding and Denies easy bruising Aller/Immun Denies wheezing Physical exam (Primary Care) Vital Signs: Last Vital Signs Pulse 62 07/25/24 09:10 BP 140/86 H 07/25/24 09:10 Pulse Ox 95 07/25/24 09:10 Oxygen Delivery Method Room Air 07/25/24 09:10 BMI result Body Mass Index 32.8 BMI Assessment/Plan discussion: High BMI High, discussed plan: lifestyle, weight reduction, dietary and physical activity Tobacco/Smoking Status: Tobacco use Status Tobacco use date assessed 07/25/24 07/25/24 09:13 Patient Tobacco Use Status Former Tobacco user 07/25/24 09:11 Tobacco use type Cigarette 07/25/24 09:11 e-Cigarette/Vaping Use Never Used 07/25/24 09:11 PHQ-9: PHQ-9 Score PHQ-9: Total score 0 07/25/24 09:24 Depression Screening Interpretation: Negative Thrive Assessment: Date of Thrive Assessment Date Thrive assessed 07/25/24 07/25/24 09:24 Currently or been in a relationship where the following occur: No concerns reported Const General: healthy appearing, no acute distress, alert and awake Nutritional Appearance: well nourished Orientation/consciousness: oriented to person, oriented to place and oriented to time HENMT Ears: TM's normal bilaterally General nose exam: Normal nasal mucous membranes and turbinates present Eyes Conjunctivae: conjunctivae normal Sclerae: sclerae normal Pupils: Equal, round and reactive pupils present Neck Neck: Yes no lymphadenopathy and Yes no JVD Thyroid: Thyroid normal Carotids: no bruits Resp Effort & Inspection: normal respiratory effort and not tachypneic Auscultation: no crackles, no rales, no rhonchi and no wheezes Cardio Rate: regular rate Rhythm: regular rhythm Heart sounds: no murmurs and normal S1 and S2 GI Palpation (GI): Soft to palpation, nontender, no hepatomegaly and no splenomegaly Auscultation: normal bowel sounds Skin General skin exam: no rashes or lesions noted and dry skin Neuro General: oriented to person, oriented to place and oriented to time Cranial nerves: Yes Equal, round and reactive pupils present Speech: No Abnormal speech present Gait exam (Neuro): Normal gait present Motor exam (neuro): no tremor noted Extrem Right upper extremity: full ROM Left upper extremity: full ROM Right lower extremity: full ROM; no edema Left lower extremity: full ROM; no edema Psych Mental Status: mental status grossly normal Speech and movement: Normal speech and movement present Affect: normal affect Attitude: cooperative Thought process: Normal thought process present Coding Level of Care Code Est Pt Level 4 (39151) Diagnoses Essential hypertension I10 Hypertension type: essential hypertension Elevated TSH R79.89 Glaucoma of left eye, unspecified glaucoma type H40.9 Glaucoma type: unspecified Laterality: left Class 1 obesity E66.811 Additional Codes DAMION-7 Assessment Billing - DAMION-7 Assessment Tool: DAMION-7 Assessment 71836 ([id number]) PHQ-9 - 17462 - PHQ-9 Billing: Yes ([id number]) Assessment & Plan Assessment & Plan (1) HTN (hypertension): Code(s): I10 - Essential (primary) hypertension Category: Medical Qualifiers: Hypertension type: essential hypertension Qualified Code(s): I10 - Essential (primary) hypertension Plan: Patient's blood pressure slightly elevated today in office. She does understand her blood pressure is up in attributes this to being stressed. She continues to be consistent with hydrochlorothiazide. We did discuss adding on lisinopril to her blood pressure med regime for better blood pressure though she declines at this time. She will monitor blood pressure more regularly at home. Goal blood pressures to be below 140/90 (2) Elevated TSH: Code(s): R79.89 - Other specified abnormal findings of blood chemistry Category: Medical Plan: Noted elevated TSH. She is willing to start low-dose levothyroxine. Have noted weight gain since last office visit. Did discuss the proper administration of levothyroxine. Will recheck TSH in 6 weeks. (3) Glaucoma: Code(s): H40.9 - Unspecified glaucoma Category: Medical Qualifiers: Glaucoma type: unspecified Laterality: left Qualified Code(s): H40.9 - Unspecified glaucoma Plan: Continues to follow ophthalmology and continues on ophthalmic eyedrops. (4) Class 1 obesity: Code(s): E66.811 - Obesity, class 1 Category: Medical Plan: Patient does understand her BMI is over 30 will work on being more physically active and adapt to better eating habits to reduce her weight. Orders: Orders TSH reflex Free T4 6 Weeks R79.89 - Other specified abnormal findings of blood chemistry Medications: New levothyroxine 25 mcg PO DAILY 30 days 30 tabs 1RF R79.89 - Other specified abnormal findings of blood chemistry
== END 2024-07-25 09:54 | disposition home or self-care (01) ==
LOC: HO.HMCH 08:54
PROVIDERS: PCP Physician Assistant; Visit Provider Physician Assistant
DX: I10 Essential (primary) hypertension (principal); R79.89 Other specified abnormal findings of blood chemistry; E66.811 Obesity, class 1; Z68.32 Body mass index [BMI] 32.0-32.9, adult; H40.9 Unspecified glaucoma

== ENCOUNTER → 2024-07-25 08:54 | Outpatient (BNVA) | payer MEDICARE, SELFPAY | PROVIDERS: PCP Physician Assistant; Visit Provider Physician Assistant | DX: I10 Essential (primary) hypertension (principal); R79.89 Other specified abnormal findings of blood chemistry; H40.9 Unspecified glaucoma; E66.811 Obesity, class 1; Z68.32 Body mass index [BMI] 32.0-32.9, adult; Z71.3 Dietary counseling and surveillance | CPT/HCPCS: 96127; 99212 ==

== ENCOUNTER 2024-08-23 06:56 | Outpatient (REF) | payer MEDICARE, SELFPAY ==
[2024-08-23 08:27] LABS: TSH reflex Free T4 3.66 uIU/mL (0.32-4.0)
== END 2024-08-23 06:57 | disposition home or self-care (01) ==
LOC: HO.LAB 06:56
PROVIDERS: PCP Physician Assistant; Visit Provider Physician Assistant
DX: R79.89 Other specified abnormal findings of blood chemistry (principal)
CPT/HCPCS: 36415; 84443